=== PATIENT | male | born 1955 | race Caucasian/White ===

== ENCOUNTER 2022-11-11 04:31 | Day surgery (SDC) | payer OTHER ==
[2022-11-08 16:48] VITALS: BMI 25.0
[2022-11-11] MEDS ORDERED: DEXAMETHASONE SOD PHOSPHATE 10 MG/1 ML VIAL ONE (11:08)
[2022-11-11] MEDS ORDERED: BUPIVACAINE HCL/PF 0.5% (5MG/ML) 10 ML VIAL ONE ×2 (11:09→12:33)
[2022-11-11] MEDS ORDERED: MIDAZOLAM HCL 2 MG/2 ML SINGLE DOSE VIAL ONE (11:17)
[2022-11-11] MEDS ORDERED: CLINDAMYCIN 300 MG PREMIX BAG IVPB ONE (13:10)
[2022-11-11] MEDS ORDERED: ONDANSETRON 4 MG/2 ML VIAL IVPUSH PRN (14:53)
[2022-11-11] MEDS ORDERED: oxyCODONE HCL 5 MG TABLET PO PRN (14:53)
[2022-11-11] MEDS ORDERED: LACTATED RINGERS SOLUTION 1,000 ML IV SCH (15:00)
[2022-11-11 18:30] VITALS: RESP 20; TEMP 97.1
[2022-11-11 18:34] VITALS: BP 130/68; PULSE 80
== END 2022-11-11 18:15 | disposition home or self-care (01) ==
LOC: JASU-SURG 04:31
PROVIDERS: ATTEND Orthopaedic Surgery
PROC: 0QSJ04Z Reposition Right Fibula with Internal Fixation Device, Open Approach (ICD-10-PCS; principal; 2022-11-11 11:30)
DX: S82.61XA Displaced fracture of lateral malleolus of right fibula, initial encounter for closed fracture (principal); X58.XXXA Exposure to other specified factors, initial encounter; Y93.9 Activity, unspecified; Y92.9 Unspecified place or not applicable; Y99.9 Unspecified external cause status
CPT/HCPCS: 27792; C1713; 94760; J1100